=== PATIENT | female | born 1980 | race American Indian/Alaskan Native ===

== ENCOUNTER 2016-10-06 21:35 | Emergency (ER) | payer MEDICAID, OTHER ==
[2016-10-06] MEDS ORDERED: FLEXERIL PO ONE (23:32)
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
[2016-10-07 04:27] VITALS: BP 126/98
== END 2016-10-07 04:15 | disposition home or self-care (01) ==
LOC: EDBD 21:35 → ED 21:35
DX: S00.83XA Contusion of other part of head, initial encounter (principal); M79.1 Myalgia; V49.49XA Driver injured in collision with other motor vehicles in traffic accident, initial encounter; Y93.89 Activity, other specified; Y92.89 Other specified places as the place of occurrence of the external cause; Y99.8 Other external cause status
CPT/HCPCS: 70450